=== PATIENT | female | born 1985 | race Caucasian/White ===

== ENCOUNTER → 2021-05-19 | Outpatient (CLI) | payer MEDICAID | END | disposition home or self-care (01) | LOC: US 12:46 | PROVIDERS: ATTEND Obstetrics & Gynecology | DX: O32.1XX0 Maternal care for breech presentation, not applicable or unspecified (principal); O36.8310 Maternal care for abnormalities of the fetal heart rate or rhythm, first trimester, not applicable or unspecified; Z3A.13 13 weeks gestation of pregnancy | CPT/HCPCS: 76805 ==

== ENCOUNTER → 2021-05-21 | Outpatient (CLI) | payer MEDICAID | END | disposition home or self-care (01) | LOC: RAD 13:25 | PROVIDERS: ATTEND Obstetrics & Gynecology | DX: O03.4 Incomplete spontaneous abortion without complication (principal); N85.2 Hypertrophy of uterus | CPT/HCPCS: 76856 ==